=== PATIENT | female | born 1980 | race Hispanic/Latino ===

== ENCOUNTER 2023-11-21 02:28 | Inpatient (IN) | payer OTHER ==
--- OUTSIDE RECORDS SUMMARY | 2023-11-21 02:31 | XMS REPORT | Continuity of Care Document ---
Author Name Unknown Address [address] [facility] [address] [place] [address] [facility] thconnect Address [address] [facility] [address] [place] [address] Care Team Providers Care Director Smb Sales Name Role Phone SERGEI WALLIS Attending Clinician Unavailable TAE MARKS Attending Clinician Unavailable TRACEY HORNER Attending Clinician Unavailab airam BASSETT MD Attending Clinician Unavailab ANA LUISA Hirsch Attending Clinician Unavailable DANIELLA DUARTE Attending Clinician BRIGETTE Saab Attending Clinician Unavailable GC_ADCM_Moreno_D Attending Clinician Unavailable LAB90 Attending Clinician Unavailable GC_ADCM_Castillo_A Attending Clinician Unavailab le GC_ADCM_Moreno_D Admitting Clinician Unavailable GC_ADCM_Castillo_A Admitting Clinician Unavailab le Payers Payer Name Policy Type Policy Number Effective Date Expirati on Date Source AETNA [facility] [place] 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 ON 9 [id number] 2023 00:00:00 [employer]ET[employer] (O) [id number] 2023 00:00:00 AETNA [facility] [place] 2 [id number] 2023 00:00:00 [facility] [id number] Problems Condition Name Condition Details Condition Category Status Onset Date Resolution Date Last Treatment Date Treating Clinician Comments Source Migraine Migraine Problem Active 2024-0 3-17 00:00: 00 [facility] Body mass index 30+ - obesity Body Mass Index 30+ - Obesity Problem Active 9-15 00:00: 00 [facility] Obesity Obesity Problem Active 9-15 00:00: 00 [facility] Essential hypertensi on Essential Hypertensi on Problem Active 9- 00:00: 00 [facility] Chronic low back pain Chronic Low Back Pain Problem Active 9- 00:00: 00 [facility] History of diverticul itis History of Diverticul itis Problem Active 9-01 00:00: 00 [facility] Hyperlipid emia Hyperlipid emia Problem Active 8-04 00:00: 00 [facility] Anxiety Anxiety Problem Active 8-04 00:00: 00 [facility] Hypertensi ve disorder Hypertensi ve Disorder Problem Active 8-04 00:00: 00 [facility] Arthritis Arthritis Problem Active 8-04 00:00: 00 [facility] Neck pain Neck Pain Problem Active 8-04 00:00: 00 [facility] Chronic back pain Chronic Back Pain Problem Active 8-04 00:00: 00 [facility] Social History Social Habit Start Date Stop Date Quantity Comments Source Sexual orientation Nick Chavez - External Alcoholic beverage intake 2023-10-18 00:00:00 2023-10-18 00:00:00 Lifetime non-drinker (finding) Verónica Chavez - External Alcohol intake 2023-08-19 00:00:00 2023-08-19 00:00:00 Lifetime non-drinker (finding) Verónica Chavez - External History of Social function 2023-08-18 00:00:00 2023-08-18 00:00:00 Verónica Chavez - External Sex assigned at 1980 00:00:00 1980 00:00:00 Erica Chavez - External Smoking Status Start Date Stop Date Source Never smoked tobacco Verónica Chavez - External Medications Ordered Medication Name Filled Medication Name Start Date Stop Date Current Medication? Ordering Clinician Indication Dosage Frequency Signature (SIG) Comments Components Source Pregabalin 200 MG oral Capsule 2024-0 5-14 00:00: 00 Yes [id number] 200mg Take 1 capsule (200 mg total) by mouth every 12 hours No alcohol. No driving.. Verónica mcneil HYDROcodone -Acetaminop hen ([place]) 5-325 MG oral Tablet -14 00:00: 00 Yes [id number] 1{tbl} Q.25D Take 1 tablet by mouth every 6 hours as needed for pain (severe pain) No alcohol. No driving. No operating machinery. Verónica mcneil Ondansetron (ZOFRAN) 4 MG oral TABLET DISPERSIBLE 15 08:23: 49 Yes 4mg Q.[id number] 3D Take 1 tablet (4 mg total) by mouth every 8 hours as needed for nausea. Verónica mcneil Losartan Potassium-H CTZ 50-12.5 MG oral Tablet 15 00:00: 00 Yes [id number] 1{tbl} Take 1 tablet by mouth daily. Verónica mcneil Meclizine HCl 25 MG oral Tablet 15 00:00: 00 Yes [id number] 25mg Q.[id number] 3D Take 1 tablet (25 mg total) by mouth 3 times daily as needed for dizziness. Verónica mcneil Fluoxetine HCl 10 MG oral Capsule -12 00:00: 00 Yes Verónica mcneil hydrOXYzine HCl 25 MG oral Tablet -12 00:00: 00 08-18 00:00 :00 No 25mg Q4H Take 1 tablet (25 mg total) by mouth every 4 hours as needed. Verónica mcneil HYDROcodone -Acetaminop hen (NORCO) 5-325 MG oral Tablet 1-02 00:00: 00 Yes TAKE 1 TABLET EVERY 6-8 HOURS NEEDED FOR PAIN MAX 3/DAY SD 06/05/23 ED 07/05/23 Verónica mcneil betamethaso ne valerate 0.1 % topical cream APPLY A THIN LAYER TO THE AFFECTED AREA(S) BY TOPICAL ROUTE ONCE DAILY betamethaso ne valerate 0.1 % topical cream APPLY A THIN LAYER TO THE AFFECTED AREA(S) BY TOPICAL ROUTE ONCE DAILY 02-18 00:00: 00 No betamethas one valerate 0.1 % topical cream APPLY A THIN LAYER TO THE AFFECTED AREA(S) BY TOPICAL ROUTE ONCE DAILY [facility] Dicyclomine HCl 10 MG oral Capsule 01-18 00:00: 00 Yes Verónica mcneil Pregabalin 200 MG oral Capsule 01-18 00:00: 00 Yes Verónica mcneil Tizanidine HCl 4 MG oral Tablet 01-18 00:00: 00 Yes Verónica mcneil HYDROcodone -Acetaminop hen (NORCO) 5-325 MG oral Tablet 01-18 00:00: 00 08-18 00:00 :00 No Verónica mcneil Ferrous Sulfate (Iron High-Potenc y) 325 MG oral Tablet 01-18 00:00: 00 Yes Verónica mcneil Losartan Potassium-H CTZ 50-12.5 MG oral Tablet 01-18 00:00: 00 08-18 00:00 :00 No Verónica mcneil Diclofenac Sodium 1 % apply externally Gel 01-18 00:00: 00 Yes Verónica mcneil Loratadine (CLARITIN) 10 MG oral tablet 01-18 00:00: 00 Yes Verónica mcneil Ubrogepant (Ubrelvy) 50 MG oral Tablet 01-18 00:00: 00 Yes [facility]ica mcne[facility] Diclofenac Potassium 50 MG oral Tablet 01-18 00:00: 00 Yes 50mg Take 1 tablet (50 mg total) by mouth 2 times daily. [facility]cne[facility] Pantoprazol e Sodium 40 MG oral Tablet Delayed Response 01-18 00:00: 00 08-18 00:00 :00 No 40mg Take 1 tablet (40 mg total) by mouth daily. Verónica mcneil Cyclobenzap rine HCl 10 MG oral Tablet 01-18 00:00: 00 08-18 00:00 :00 No 10mg Q.5D Take 1 tablet (10 mg total) by mouth 2 times daily as needed. Verónica mcneil Butalbital- APAP-Caffei ne 325 mg-40 mg-50 mg tablet Take 1 tablet every 4 hours by oral route. Butalbital- APAP-Caffei ne 325 mg-40 mg-50 mg tablet Take 1 tablet every 4 hours by oral route. No 1 Q4H Butalbital -APAP-Caff eine 325 mg-40 mg-50 mg tablet Take 1 tablet every 4 hours by oral route. [facility] diclofenac sodium 50 mg tablet,josh yed release Take 1 tablet twice a day by oral route. diclofenac sodium 50 mg tablet,josh yed release Take 1 tablet twice a day by oral route. No 1 BID diclofenac sodium 50 mg tablet,del ayed release Take 1 tablet twice a day by oral route. [facility] Ferrous Sulfate FC 325 mg tablet Take 1 tablet every day by oral route. Ferrous Sulfate FC 325 mg tablet Take 1 tablet every day by oral route. No 1 Q1D Ferrous Sulfate FC 325 mg tablet Take 1 tablet every day by oral route. [facility] lidocaine 4 % topical cream lidocaine 4 % topical cream No lidocaine 4 % topical cream [facility] mupirocin 2 % topical ointment APPLY A SMALL AMOUNT TO THE AFFECTED AREA BY TOPICAL ROUTE 3 TIMES PER DAY mupirocin 2 % topical ointment APPLY A SMALL AMOUNT TO THE AFFECTED AREA BY TOPICAL ROUTE 3 TIMES PER DAY No mupirocin 2 % topical ointment APPLY A SMALL AMOUNT TO THE AFFECTED AREA BY TOPICAL ROUTE 3 TIMES PER DAY [facility] nortriptyli ne 10 mg capsule TAKE 1 CAPSULE BY MOUTH TWICE A DAY nortriptyli ne 10 mg capsule TAKE 1 CAPSULE BY MOUTH TWICE A DAY No nortriptyl ine 10 mg capsule TAKE 1 CAPSULE BY MOUTH TWICE A DAY [facility] pantoprazol e 40 mg tablet,josh yed release Take 1 tablet every day by oral route for 90 days. pantoprazol e 40 mg tablet,josh yed release Take 1 tablet every day by oral route for 90 days. No 1 Q1D pantoprazo le 40 mg tablet,del ayed release Take 1 tablet every day by oral route for 90 days. [facility] Vital Signs Vital Name Observation Time Observation Value Comments S ource Body height 2023-10-18 18:56:00 152.4 cm Zulema ey Seybold - External Body weight 2023-10-18 18:56:00 77.565 kg Zulema ey Seybold - External BMI 2023-10-18 18:56:00 33.40 kg/m2 Zulema ey Seybold - External Systolic blood pressure 2023-08-19 13:15:00 108 mm[Hg] Verónica Seybo ld - External Diastolic blood pressure 2023-08-19 13:15:00 88 mm[Hg] Verónica Seybo ld - External Heart rate 2023-08-19 13:15:00 80 /min Kelse y Seybold - External Body temperature 2023-08-19 13:15:00 36.89 Rika Verónica Seybold - External Respiratory rate 2023-08-19 13:15:00 16 /min Verónica Seybold - External Body height 2023-08-19 13:15:00 152.4 cm Zulema ey Seybold - External Body weight 2023-08-19 13:15:00 75.297 kg Zulema ey Seybold - External BMI 2023-08-19 13:15:00 32.42 kg/m2 Zulema ey Seybold - External Systolic blood pressure 2023-08-19 13:15:00 108 mm[Hg] Verónica Seybo ld - External Diastolic blood pressure 2023-08-19 13:15:00 88 mm[Hg] Verónica Seybo ld - External Heart rate 2023-08-19 13:15:00 80 /min Kelse y Seybold - External Body temperature 2023-08-19 13:15:00 36.89 Rika Verónica Seybold - External Respiratory rate 2023-08-19 13:15:00 16 /min Veórnica Seybold - External Body height 2023-08-19 13:15:00 152.4 cm Zulema ey Seybold - External Body weight 2023-08-19 13:15:00 75.297 kg Zulema ey Seybold - External BMI 2023-08-19 13:15:00 32.42 kg/m2 Zulema ey Seybold - External Height 2023-06-08 00:00:00 60 [in_i] [facility] BP Systolic 2023-06-08 00:00:00 116 mm[Hg] [facility] Body Weight 2023-06-08 00:00:00 2624 [oz_av] [facility] BMI (Body Mass Index) 2023-06-08 00:00:00 32 kg/m2 [facility] BP Diastolic 2023-06-08 00:00:00 66 mm[Hg] [facility] Procedures Procedure Date / Time Performed Performing Clinicia n Source Delivery 2008-06-06 00:00:00 [facility] En[facility] Start Date/Time End Date/Time Encounter Type Admission Type Attending [facility] Facility Care Department Encounter ID Source 2024-01-02 10:00:00 2024-01-02 10:00:00 Outpatient SERGEI WALLIS [id number] [facility] 2023-11-11 08:45:00 2023-11-11 08:45:00 Outpatient TAE MARKS [id number] [facility] 2023-11-10 15:00:00 2023-11-10 15:00:00 Outpatient TRACEY HORNER [id number] [facility] 2023-11-09 13:45:00 2023-11-09 13:45:00 Outpatient TAE MARKS [id number] [facility] 2023-11-09 09:00:00 2023-11-09 09:00:00 Outpatient TRACEY HORNER [id number] [facility] 2023-11-04 11:00:00 2023-11-04 11:00:00 Outpatient TAE MARKS [id number] [facility] 2023-11-01 00:00:00 2023-11-01 00:00:00 Outpatient MD VERÓNICA MCQUEEN [id number] [facility] 2023-10-25 09:30:00 2023-10-25 09:30:00 Outpatient TAE MARKS [id number] [facility] 2023-10-18 13:45:00 2023-10-18 13:45:00 Outpatient ANA LUISA NAJERA [facility] STRONG [id number] [facility] 2023-09-30 08:15:00 2023-09-30 08:15:00 Outpatient DANIELLA DUARTE [facility] [id number] [facility] 2023-09-26 10:15:00 2023-09-26 10:15:00 Outpatient BRIGETTE LIZ [facility] [id number] [facility] 2023-09-15 16:00:00 2023-09-15 16:00:00 Outpatient DANIELLA DUARTE [facility] STRONG [id number] [facility] 2023-09-06 00:00:00 2023-09-06 00:00:00 Outpatient GC_ADCM_Mor eno_D PRIV PRIV [id number] [facility] 2023-09-05 09:30:00 2023-09-05 09:30:00 Outpatient DANIELLA DUARTE [facility] STRONG [id number] [facility] 2023-08-19 09:15:00 2023-08-19 09:15:00 Outpatient CYNDY [facility]ICA STRONG [id number] [facility] 2023-08-19 08:30:00 2023-08-19 08:30:00 Outpatient DANIELLA DUARTE [facility] STRONG [id number] [facility] 2023-08-19 08:30:00 2023-08-19 08:30:00 Outpatient DANIELLA DUARTE [facility] STRONG [id number] [facility] 2023-08-16 13:02:51 2023-08-16 13:02:51 Outpatient SFA [facility] [id number] David Maldonado Jonah 2023-08-08 00:00:00 2023-08-08 00:00:00 Outpatient PRIV PRIV [id number] [facility] 2023-06-09 00:00:00 2023-06-09 00:00:00 Outpatient GC_ADCM_Mor eno_D PRIV PRIV [id number] [facility] 2023-06-08 00:00:00 2023-06-08 00:00:00 Outpatient GC_ADCM_Cas tillo_A PRIV PRIV [id number] [facility] 2023-06-08 00:00:00 2023-06-08 00:00:00 Saad Casanova MD: [address], [facility] [place] [address] , Ph. [facility] - GC_ADCM_[place] Office* [id number] [facility] 2023-04-04 00:00:00 2023-04-04 00:00:00 Outpatient GC_ADCM_Cas tillo_A PRIV PRIV [id number] [facility] 2023-04-04 00:00:00 2023-04-04 00:00:00 Outpatient GC_ADCM_Cas tillo_A PRIV PRIV [id number] [facility] 2023-03-16 00:00:00 2023-03-16 00:00:00 Outpatient GC_ADCM_Cas tillo_A PRIV PRIV [id number] [facility] 2023-03-16 00:00:00 2023-03-16 00:00:00 Outpatient GC_ADCM_Cas tillo_A PRIV PRIV [id number] [facility] 2023-03-02 00:00:00 2023-03-02 00:00:00 Outpatient GC_ADCM_Cas tillo_A PRIV PRIV [id number] [facility] 2023-02-18 00:00:00 2023-02-18 00:00:00 Outpatient GC_ADCM_Cas tillo_A PRIV PRIV [id number] [facility] 2023-02-15 00:00:00 2023-02-15 00:00:00 Outpatient GC_ADCM_Cas tillo_A PRIV PRIV [id number] [facility] 2023-02-04 00:00:00 2023-02-04 00:00:00 Outpatient GC_ADCM_Cas tillo_A PRIV PRIV [id number] [facility] 2023-02-03 00:00:00 2023-02-03 00:00:00 Outpatient GC_ADCM_Cas tillo_A PRIV PRIV [id number] [facility] 2023-01-09 00:00:00 2023-01-09 00:00:00 Outpatient GC_ADCM_Cas tillo_A [facility] [id number] [facility] 2023-01-07 00:00:00 2023-01-07 00:00:00 Outpatient GC_ADCM_Cas tillo_A [facility] [id number] [facility] 2023-01-06 00:00:00 2023-01-06 00:00:00 Outpatient GC_ADCM_Cas tillo_A [facility] [id number] [facility] Notes Date/Time Note Provider Source 2023-10-18 13:57:45 [id number]:57:45F ormatting of this note is different from the original.Chief ComplaintPatient presents withBack PainLower back [id number] ItmeQE8510-26-76R75:51:33Nurse NoteTXT1.2.840.955990.1.13.131.2.7.2. [id number] for patient takj11056-1Pfqxf NoteLNNARRATIVEFormatted C-CDA narrative textAscension [facility].[id number]:51:331.2.840.323336.1.7 2.3.15|1.2.840.890030.1.13.131.2.7.2. [id number] [facility] 2023-08-19 08:21:24 [id number]:21:24F ormatting of this note is different from the original.Chief ComplaintPatient presents withEstkittitas valley healthcaregely CorderoOly had a PCP in [place] and has just moved to the area.ReferralReferral for pain management. She was seeing Pain Management and has records.DizzinessDizziness for 3 days. No nausea or vomiting. [place] [id number] BiuyGV1308-23-02Y72:24:27Nurse NoteTXT1.2.840.906413.1.13.131.2.7.2. 367003|[id number] for patient xvig10998-8Rzlse NoteLNNARRATIVEFormatted C-CDA narrative [facility].[id number]:24:271.2.840.926374.1.7 2.3.15|1.2.840.783492.1.13.131.2.7.2. [id number] [facility]"
[2023-11-21] MEDS ORDERED: KETOROLAC 30 MG/ML INJ ONE (03:28)
[2023-11-21] MEDS ORDERED: ONDANSETRON 4 MG/2 ML VIAL ONE ×2 (03:28→05:19)
[2023-11-21] MEDS ORDERED: FAMOTIDINE 20 MG/2 ML VIAL IV ONE (03:29)
[2023-11-21] MEDS ORDERED: MORPHINE 4 MG/ML SYR ONE ×2 (03:29→05:19)
[2023-11-21] MEDS ORDERED: NA CHLORIDE 0.9% 1,000 ML ONE (03:29)
[2023-11-21 03:58] LABS: Absolute Eosinophils 0.1 K/uL (0-0.5); Absolute Lymphocytes (CBC) 1.1 K/uL (0.7-4.9); Absolute Monocytes 0.7 K/uL (0.1-1.3); Absolute Neutrophil 7.2 K/uL (1.8-8.0); Basophils % 0.3 % (0-1.3); Eosinophils % 1.4 % (0-4.4); Hematocrit 36.9 % (36.0-45.0); Lymphocytes % 11.9 % (15.3-44.8); MCH 24.9 pg (27.0-35.0); MCHC 32.6 g/dL (32.0-36.0); MCV 76.5 fL (80-100); MPV 8.2 fL (7.6-11.3); Neutrophils % 78.4 % (41.7-73.7); Nucleated Red Blood Cells % 0.1 % (0-0); Platelets 273 thou/uL (152-406); RBC Red Blood Cell Count 4.82 M/uL (3.86-4.86); Red Cell Distribution Width 15.3 % (12.1-15.2)
[2023-11-21 04:18] LABS: Specific Gravity > 1.030 (1.005-1.030)
[2023-11-21 04:19] LABS: Specific Gravity > 1.030 (1.005-1.030); Sqamous Epithelial <5 /HPF (None Seen); Urine Bacteria None Seen /HPF (<20); Urine Bilirubin NEGATIVE (Negative); Urine Blood 3+ (OVER) (Negative); Urine Clarity Clear (Clear); Urine Color Light-Yellow (Yellow); Urine Culture Reflex Order NOT NEEDED; Urine Glucose NEGATIVE (Negative); Urine Ketones NEGATIVE (Negative); Urine Microscopic Reflex YN ORDER UMIC; Urine Mucus Slight /HPF (None Seen); Urine Nitrite NEGATIVE (Negative); Urine Protein TRACE (Negative); Urine RBC 21-50 /HPF (None Seen); Urine Urobilinogen Normal (Normal); Urine WBC <5 /HPF (<5)
[2023-11-21 04:26] LABS: Albumin 3.3 g/dL (3.4-5.0); Albumin/Globulin Ratio 0.9 (1.1-1.8); Anion Gap 7.5 mEq/L (5.0-15.0); Bilirubin Total 0.2 mg/dL (0.2-1.0); Globulin 3.8 g/dL (2.3-3.5); Potassium 3.5 mEq/L (3.5-5.1); Protein, Total 7.1 g/dL (6.4-8.2)
[2023-11-21] MEDS ORDERED: CEFTRIAXONE 1000 MG/VIAL ONE ×2 (05:46→06:01)
[2023-11-21] MEDS ORDERED: CIPROFLOXACIN 400mg IV 400 MG/200 ML BAG IV ONE (05:47)
[2023-11-21] MEDS ORDERED: METRONIDAZOLE 500mg IVPB 500 MG/100 ML BAG IV ONE (05:47)
--- NOTE | 2023-11-21 05:49 | EDPHYS ---
Physician Documentation [facility] Name: Va Huntley Age: 43 yrs Sex: Female : 1980 Arrival Date: 11/21/2023 Time: 02:28 Bed 6 Private MD: ED Physician Sawyer Coronado HPI: 11/20 02:57 This 43 yrs old Female presents to ER via Unassigned with complaints of dagoberto Abdominal Pain. 02:57 The patient presents with abdominal pain in the upper abdomen, in the lower abdomen, dagoberto abdominal distention in the upper abdomen, in the lower abdomen. Onset: The symptoms/episode began/occurred 9 hour(s) ago. The symptoms radiate to left back. Associated signs and symptoms: none. The symptoms are described as constant, crampy. Modifying factors: The symptoms are alleviated by remaining still, the symptoms are aggravated by movement, pressure. Severity of pain: At its worst the pain was moderate in the emergency department the pain is unchanged. The patient has experienced similar episodes in the past, a few times. 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 - Infectious Disease History:: Denies. - Family history:: not pertinent. - Social history:: Patient/guardian denies using Smoking status: Patient denies any tobacco usage or history of. ROS: 02:57 Constitutional: Negative for fever, chills, and weight loss, Eyes: Negative for injury, dagoberot pain, redness, and discharge, ENT: Negative for injury, pain, and discharge, Neck: Negative for injury, pain, and swelling, Cardiovascular: Negative for chest pain, palpitations, and edema, Respiratory: Negative for shortness of breath, cough, wheezing, and pleuritic chest pain, Back: Negative for injury and pain, : Negative for injury, bleeding, discharge, and swelling, MS/Extremity: Negative for injury and deformity, Skin: Negative for injury, rash, and discoloration, Neuro: Negative for headache, weakness, numbness, tingling, and seizure, 02:57 Abdomen/GI: Positive for abdominal pain, abdominal cramps, abdominal distension, of the left upper quadrant and left lower quadrant, Exam: 02:57 Constitutional: This is a well developed, well nourished patient who is awake, alert, dagoberto and in no acute distress. Head/Face: Normocephalic, atraumatic. Eyes: Pupils equal round and reactive to light, extra-ocular motions intact. Lids and lashes normal. Conjunctiva and sclera are non-icteric and not injected. Cornea within normal limits. Periorbital areas with no swelling, redness, or edema. ENT: Nares patent. No nasal discharge, no septal abnormalities noted. Tympanic membranes are normal and external auditory canals are clear. Oropharynx with no redness, swelling, or masses, exudates, or evidence of obstruction, uvula midline. Mucous membranes moist. Neck: Trachea midline, no thyromegaly or masses palpated, and no cervical lymphadenopathy. Supple, full range of motion without nuchal rigidity, or vertebral point tenderness. No Meningismus. Chest/axilla: Normal chest wall appearance and motion. Nontender with no deformity. No lesions are appreciated. Cardiovascular: Regular rate and rhythm with a normal S1 and S2. No gallops, murmurs, or rubs. Normal PMI, no JVD. No pulse deficits. Respiratory: Lungs have equal breath sounds bilaterally, clear to auscultation and percussion. No rales, rhonchi or wheezes noted. No increased work of breathing, no retractions or nasal flaring. Back: No spinal tenderness. No costovertebral tenderness. Full range of motion. Skin: Warm, dry with normal turgor. Normal color with no rashes, no lesions, and no evidence of cellulitis. MS/ Extremity: Pulses equal, no cyanosis. Neurovascular intact. Full, normal range of motion. Neuro: Awake and alert, GCS 15, oriented to person, place, time, and situation. Cranial nerves II-XII grossly intact. Motor strength 5/5 in all extremities. Sensory grossly intact. Cerebellar exam normal. Normal gait. Psych: Awake, alert, with orientation to person, place and time. Behavior, mood, and affect are within normal limits. 02:57 Abdomen/GI: Inspection: distension, that is mild, Bowel sounds: normal, Palpation: moderate abdominal tenderness, in the left upper quadrant and left lower quadrant, Liver: no appreciated palpable abnormalities, Hernia: not appreciated, 02:57 Back: ROM is normal, normal spinal alignment noted, CVA tenderness, that is mild, is noted on the left, vertebral tenderness, is not appreciated, muscle spasm, is not present, Vital Signs: 02:57 BP 121 / 81; Pulse 80; Resp 15; Temp 98.2; Pulse Ox 99% ; Weight 77.11 kg; Height 5 ft. ty 0 in. ; Pain 10/10; 04:58 Pulse 73; Pulse Ox 99% on R/A; Pain 8/10; tm6 09:19 BP 112 / 72; Pulse 71; Resp 18; Pulse Ox 97% on R/A; ld1 02:57 Body Mass Index 33.20 (77.11 kg, 152.40 cm) ty 02:57 Pain Scale: Adult ty 04:58 Pain Scale: Adult tm6 MDM: 02:38 Patient medically screened. [facility] 03:01 Differential diagnosis: bowel obstruction, Cholelithiasis, diverticulitis, gastritis, dagoberto Hepatitis, Menorrhagia, Mesenteric ischemia or infarction, non-specific abd pain, pancreatitis, Peptic Ulcer Disease, Perf. Duodenal Ulcer, Pyelonephritis, Ureterolithiasis, urinary tract infection. Data reviewed: vital signs, nurses notes, lab test result(s), radiologic studies, CT scan. Consideration of Admission/Observation Escalation of care including admission/observation considered. I considered the following discharge prescriptions or medication management in the emergency department Medications were administered in the Emergency Department. See MAR. Independent interpretation of the following test(s) in the Emergency Department CT Scan: My interpretation is ct abd pelvis. Historians other than the Patient: Spouse/Significant Other: sign other well informed. 11/20 02:55 Order name: CBC with Diff; Complete Time: 04:00 [facility] 11/20 02:55 Order name: CMP; Complete Time: 05:27 [facility] 11/20 02:55 Order name: Lipase; Complete Time: 05:27 [facility] 11/20 02:55 Order name: Test, Urine; Complete Time: 05:27 [facility] 11/20 02:55 Order name: Urinalysis w/ reflexes; Complete Time: 05:27 [facility] 11/20 09:14 Order name: Thyroid Stimulating Hormone [facility] 11/20 09:14 Order name: Basic Metabolic Panel [facility] 11/20 09:14 Order name: Basic Metabolic Panel [facility] 11/20 09:14 Order name: Basic Metabolic Panel [facility] 11/20 09:14 Order name: Basic Metabolic Panel [facility] 11/20 09:14 Order name: Basic Metabolic Panel [facility] 11/20 09:14 Order name: Basic Metabolic Panel [facility] 11/20 09:14 Order name: CBC with Automated Diff [facility] 11/20 09:14 Order name: CBC with Automated Diff [facility] 11/20 09:14 Order name: CBC with Automated Diff [facility] 11/20 09:14 Order name: CBC with Automated Diff [facility] 11/20 09:14 Order name: CBC with Automated Diff [facility] 11/20 09:14 Order name: CBC with Automated Diff [facility] 11/20 09:14 Order name: Lipid Profile [facility] 11/20 09:14 Order name: Lipid Profile [facility] 11/20 09:14 Order name: Magnesium [facility] 11/20 09:14 Order name: Magnesium ED[facility] 11/20 09:14 Order name: Magnesium EDMS 11/20 09:14 Order name: Magnesium ED[facility] 11/20 09:14 Order name: Magnesium EDMS 11/20 09:14 Order name: Magnesium EDMS 11/20 09:14 Order name: Phosphorus ED[facility] 11/20 09:14 Order name: Phosphorus EDMS 11/20 09:14 Order name: Phosphorus EDMS 11/20 09:14 Order name: Phosphorus EDMS 11/20 09:14 Order name: Phosphorus EDMS 11/20 09:14 Order name: Phosphorus EDMS 11/20 09:18 Order name: T4 Free EDMS 11/20 09:18 Order name: Thyroid Stimulating Hormone EDMS 11/20 02:55 Order name: CT Abd/Pelvis - IV Contrast Only [facility] 11/20 02:55 Order name: IV Saline Lock; Complete Time: 03:17 [facility] 11/20 02:55 Order name: Labs collected and sent; Complete Time: 03:17 [facility] Administered Medications: 03:41 Drug: NS 0.9% IV 1000 ml IV at 1 bolus Per protocol; 1000 mL bolus Route: IV; Rate: 1 tm6 bolus; Site: right antecubital; 03:41 Drug: Famotidine IVP 20 mg IVP once; dilute with 10 mL 0.9% NaCl; give over 2 minutes tm6 Route: IVP; Site: right antecubital; 03:41 Drug: TORadol - Ketorolac IVP 15 mg IVP once Route: IVP; Site: right antecubital; tm6 03:41 Drug: Ondansetron IVP 4 mg IVP once; over 2 minutes Route: IVP; Site: right antecubital;tm6 03:41 Drug: morphine IVP or IV 4 mg IVP once over 4 mins Route: IVP; Infused Over: 4 mins; tm6 Site: right antecubital; 05:40 Drug: morphine IVP or IV 4 mg IVP once over 4 mins Route: IVP; Infused Over: 4 mins; tm6 Site: right antecubital; 05:40 Drug: Ondansetron IVP 4 mg IVP once; over 2 minutes Route: IVP; Site: right antecubital;tm6 05:41 CANCELLED (Duplicate Order): morphineor iv 4 mg IVP once over 4 mins tm6 05:41 CANCELLED (Duplicate Order): ondansetron 4 mg IVP once; over 2 minutes tm6 06:01 Drug: Rocephin IV 1 grams IV at per protocol once; Given slow IV push per pharmacy tm6 instructions Route: IV; Rate: per protocol; Site: right antecubital; 06:08 Drug: metroNIDAZOLE IVPB 500 mg 100 ml IVPB at 200 ml/hr once over 30 mins Volume: 100 tm6 ml; Route: IVPB; Rate: 200 ml/hr; Infused Over: 30 mins; Site: right antecubital; 06:08 Drug: Rocephin IV 1 grams IV at per protocol once; Given slow IV push per pharmacy tm6 instructions Route: IV; Rate: per protocol; Site: right antecubital; 07:14 Drug: Ciprofloxacin IVPB 400 mg 200 ml IVPB once over 60 mins Volume: 200 ml; Route: ld1 IVPB; Infused Over: 60 mins; Site: right antecubital; Disposition Summary: 11/21/23 05:49 Hospitalization Ordered Notes: Hospitalization Status: Inpatient Admission dagoberto Provider: Joslyn Ivory cha Location: Telemetry/MedSurg (Inpatient) dagoberto Condition: Stable dagoberto Problem: new dagoberto Symptoms: have improved dagoberto Bed/Room Type: Standard [facility] Room Assignment: 407(11/21/23 09:22) bd Diagnosis - Abdominal tenderness dagoberto - Diverticulitis of large intestine without perforation or abscess without bleeding - dagoberto DECENDING COLON Forms: - Medication Reconciliation Form dagoberto - SBAR form dagoberto - Leadership Thank You Letter dagoberto Signatures: Dispatcher [employer] EDMS MengEsther umana Sawyer Birmingham MD MD cha Sims, Lauren, RN RN ld1 Marcelino Altman RN RN tm6 Elsy escobar, RN RN pc2 Corrections: (The following items were deleted from the chart) 02:55 02:55 CBC+H.LAB.BRZ ordered. EDMS EDMS 02:55 02:55 COMPREHENSIVE METABOLIC PANEL+C.LAB.BRZ ordered. EDMS EDMS 02:55 02:55 LIPASE+C.LAB.BRZ ordered. EDMS EDMS 02:55 02:55 Test, Urine+UC.LAB.BRZ ordered. EDMS EDMS 02:55 02:55 Urinalysis+U.LAB.BRZ ordered. EDMS EDMS 02:55 02:55 Abdomen Pelvis W Con+CT.RAD.BRZ ordered. EDMS EDMS 03:28 03:02 Social history: Patient/guardian denies using alcohol, street drugs, IV drugs, pc2pc2 05:41 05:30 morphine IVP or IV 4 mg IVP once over 4 mins ordered. [facility] tm6 05:41 05:30 Ondansetron IVP 4 mg IVP once; over 2 minutes ordered. [facility] 09:16 09:14 T4 Free ordered. EDVT EDMS 09:16 09:14 Thyroid Stimulating Hormone ordered. EDMS EDMS 09:22 05:49 [facility]
--- NOTE | 2023-11-21 05:49 | ER ---
Nurse's Notes [facility] Name: Va Huntley Age: 43 yrs Sex: Female : 1980 Arrival Date: 11/21/2023 Time: 02:28 Bed 6 Private MD: Diagnosis: Abdominal tenderness;Diverticulitis of large intestine without perforation or abscess without bleeding-DECENDING COLON Presentation: 11/20 03:01 Chief complaint: Patient states: left sided abdominal pain radiating to back that pc2 starting 6pm lastnight. Denies N/V or urinary symptoms. Coronavirus screen: Client denies travel out of the [place] in the last 14 days. At this time, the client does not indicate any symptoms associated with coronavirus-19. Ebola Screen: No symptoms or risks identified at this time. Initial Sepsis Screen: Does the patient meet any 2 criteria? No. Patient's initial sepsis screen is negative. Initial Sepsis Screen: Does the patient meet any 2 criteria? No. Patient's initial sepsis screen is negative. Does the patient have a suspected source of infection? No. Patient's initial sepsis screen is negative. Risk Assessment: Do you want to hurt yourself or someone else? Patient reports no desire to harm self or others. 03:01 Method Of Arrival: Ambulatory pc2 03:01 Acuity: TEDDY 3 pc2 03:01 Onset of symptoms was November 20, 2023 at 18:00. pc2 Triage Assessment: 03:04 General: Appears in no apparent distress. uncomfortable, well developed, Behavior is pc2 calm, cooperative, appropriate for age. Pain: Complains of pain in left abdomen Pain radiates to back Pain currently is 10 out of 10 on a pain scale. Noted to be grimacing. EENT: No signs and/or symptoms were reported regarding the EENT system. Neuro: Level of Consciousness is awake, alert, obeys commands, Oriented to person, place, time, situation, Appropriate for age Gait is steady, Speech is normal. Cardiovascular: Patient's skin is warm and dry. Respiratory: Airway is patent Respiratory effort is even, unlabored, Respiratory pattern is regular, symmetrical. GI: Abdomen is non-distended, Bowel sounds present X 4 quads. Abd is soft and non tender X 4 quads. Reports lower abdominal pain, Pain is 10 out of 10 on a pain scale. reports last menstrual 11/18/23. : No signs and/or symptoms were reported regarding the genitourinary system. Denies burning with urination, discharge, inability to void, incontinence, urinary frequency, urgency. Derm: No signs and/or symptoms reported regarding the dermatologic system. Musculoskeletal: No signs and/or symptoms reported regarding the musculoskeletal system. 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 - Infectious Disease History:: Denies. - Family history:: not pertinent. - Social history:: Patient/guardian denies using Smoking status: Patient denies any tobacco usage or history of. Screenin:26 [facility] ED Fall Risk Assessment (Adult) History of falling in the last 3 months, pc2 including since admission No falls in past 3 months (0 pts). Abuse screen: Denies threats or abuse. Denies injuries from another. Nutritional screening: No deficits noted. Tuberculosis screening: No symptoms or risk factors identified. Assessment: 03:12 Reassessment: see triage assessment. pc2 04:58 Reassessment: Patient and/or family updated on plan of care and expected duration. Pain tm6 level reassessed. Patient is alert, oriented x 3, equal unlabored respirations, skin warm/dry/pink. Vital Signs: 02:57 BP 121 / 81; Pulse 80; Resp 15; Temp 98.2; Pulse Ox 99% ; Weight 77.11 kg; Height 5 ft. ty 0 in. ; Pain 10/10; 04:58 Pulse 73; Pulse Ox 99% on R/A; Pain 8/10; tm6 09:19 BP 112 / 72; Pulse 71; Resp 18; Pulse Ox 97% on R/A; ld1 02:57 Body Mass Index 33.20 (77.11 kg, 152.40 cm) ty 02:57 Pain Scale: Adult ty 04:58 Pain Scale: Adult tm6 ED Course: 02:31 Patient arrived in ED. jj6 02:37 Sawyer Coronado MD is Attending Physician. dagoberto 02:58 Elsy escobar, RN is Primary Nurse. pc2 03:01 Arm band placed on right wrist. pc2 03:05 Patient has correct armband on for positive identification. Bed in low position. Call pc2 light in reach. Side rails up X2. Adult w/ patient. 03:05 Provided Education on: POC and timeframe. pc2 03:17 Triage completed. pc2 03:17 Initial lab(s) drawn, by me, sent to lab. Inserted saline lock: 22 gauge in right ty antecubital area, using aseptic technique. Blood collected. 03:17 CBC with Diff Sent. ty 03:17 CMP Sent. ty 03:17 Lipase Sent. ty 03:26 Test, Urine Sent. tm6 03:26 Urinalysis w/ reflexes Sent. tm6 04:44 CT Abd/Pelvis - IV Contrast Only In Process Unspecified. EDMS 05:47 Joslyn Ivory MD is Hospitalizing Provider. dagoberto 09:49 Initial lab(s) drawn, by me, sent to lab. sm8 Administered Medications: 03:41 Drug: NS 0.9% IV 1000 ml IV at 1 bolus Per protocol; 1000 mL bolus Route: IV; Rate: 1 tm6 bolus; Site: right antecubital; 03:41 Drug: Famotidine IVP 20 mg IVP once; dilute with 10 mL 0.9% NaCl; give over 2 minutes tm6 Route: IVP; Site: right antecubital; 03:41 Drug: TORadol - Ketorolac IVP 15 mg IVP once Route: IVP; Site: right antecubital; tm6 03:41 Drug: Ondansetron IVP 4 mg IVP once; over 2 minutes Route: IVP; Site: right antecubital;tm6 03:41 Drug: morphine IVP or IV 4 mg IVP once over 4 mins Route: IVP; Infused Over: 4 mins; tm6 Site: right antecubital; 05:40 Drug: morphine IVP or IV 4 mg IVP once over 4 mins Route: IVP; Infused Over: 4 mins; tm6 Site: right antecubital; 05:40 Drug: Ondansetron IVP 4 mg IVP once; over 2 minutes Route: IVP; Site: right antecubital;tm6 05:41 CANCELLED (Duplicate Order): morphineor iv 4 mg IVP once over 4 mins tm6 05:41 CANCELLED (Duplicate Order): ondansetron 4 mg IVP once; over 2 minutes tm6 06:01 Drug: Rocephin IV 1 grams IV at per protocol once; Given slow IV push per pharmacy tm6 instructions Route: IV; Rate: per protocol; Site: right antecubital; 06:08 Drug: metroNIDAZOLE IVPB 500 mg 100 ml IVPB at 200 ml/hr once over 30 mins Volume: 100 tm6 ml; Route: IVPB; Rate: 200 ml/hr; Infused Over: 30 mins; Site: right antecubital; 06:08 Drug: Rocephin IV 1 grams IV at per protocol once; Given slow IV push per pharmacy tm6 instructions Route: IV; Rate: per protocol; Site: right antecubital; 07:14 Drug: Ciprofloxacin IVPB 400 mg 200 ml IVPB once over 60 mins Volume: 200 ml; Route: ld1 IVPB; Infused Over: 60 mins; Site: right antecubital; Medication: 03:27 VIS not applicable for this client. pc2 Outcome: 05:49 Decision to Hospitalize by Provider. [facility] 10:41 Patient left the ED. iw Signatures: Dispatcher [employer] EDSawyer Grimm MD MD cha Williams, Irene, RN RN iw Radha Caceres RN RN ld1 Oneyda Eldridge jj6 Kathleen Long sm8 Marcelino Altman RN RN tm6 Celso Jay Pam, RN RN pc2 Corrections: (The following items were deleted from the chart) 03:28 03:02 Social history: Patient/guardian denies using alcohol, street drugs, IV drugs, pc2pc2 03:30 03:04 GI: Abdomen is non-distended, Abd is soft and non tender X 4 quads. Reports lower pc2 abdominal pain, Pain is 10 out of 10 on a pain scale. reports last menstrual 11/18/23 pc2
--- NOTE | 2023-11-21 06:31 | P.HP ---
Certification for Inpatient Patient admitted to: Inpatient With expected LOS: >2 Midnights Practitioner: I am a practitioner with admitting privileges, knowledge of patient current condition, hospital course, and medical plan of care. Services: Services provided to patient in accordance with Admission requirements found in Title 42 Section 412.3 of the Code of Federal Regulations Patient History Date of Service: 11/21/23 Reason for admission: Acute Diverticulitis History of Present Illness: Va Arnett is a 43-year-old female with past medical history of depression who presents to the ED with chief complaint of LLQ abdominal pain that began 9 hours prior to arrival. She reports having a history of diverticulitis with the last episode approximately 1 year ago. She denies nausea, vomiting, diarrhea. She is hemodynamically stable and lab values showing left shift with neutrophils at 78.4 and UA showing microcytic blood present. CT abd/pelvis demonstrates acute uncomplicated diverticulitis of the distal descending colon, hepatomegaly and hepatic steatosis. Va will be admittted to hospitalist service for further evaluation and treatment. Dr. Duarte consulted Allergies No Known Allergies Allergy (Unverified 11/21/23 08:57) Home Medications: Losartan Potassium 12.5 mg PO DAILY 11/21/23 - Past Medical/Surgical History -: Diverticulitis -: Depression Past Surgical History: Reviewed- Non-Contributory - Family History Father -: Heart disease, Hypertension, Diabetes Mother -: Heart disease, Hypertension, Diabetes - Social History Smoking Status: Never smoker Alcohol use: No CD- Drugs: No Review of Systems Gastrointestinal: Abdominal Pain (LLQ) Physical Examination - Physical Exam General: Alert, In no apparent distress, Oriented x3 HEENT: Atraumatic, Normocephalic, PERRLA Neck: Supple, 2+ carotid pulse no bruit Respiratory: Clear to auscultation bilaterally, Normal air movement Cardiovascular: Normal pulses, Regular rate/rhythm Capillary refill: <2 Seconds Gastrointestinal: Normal bowel sounds, Soft and benign, Distended (I will be), Tenderness (LLQ) Musculoskeletal: No swelling Integumentary: No rashes Neurological: Normal speech, Normal tone - Studies Laboratory Data (last 24 hrs) 11/21/23 11/21/23 03:13 03:13 WBC 9.20 Hgb 12.0 Hct 36.9 Plt Count 273 Sodium 140 Potassium 3.5 BUN 12 Creatinine 0.68 Glucose 100 Total Bilirubin 0.2 AST 29 ALT 58 H Alkaline Phosphatase 93 Lipase 57 Assessment and Plan - Plan Assessment and plan Acute diverticulitis of the distal descending colon Febrile Left lower quadrant pain -CT abd/pelvis demonstrates acute uncomplicated diverticulitis of the distal descending colon, hepatomegaly and hepatic steatosis. -N.p.o., Ice chips, advance to CLD tonight -Pain control -Rocephin, Cipro, Flagyl given in the ED -Ciprofloxacin and Flagyl on the floor -Gentle IV fluids -Tylenol for fever -Dr. Duarte consulted History of Depression -continue home medications when available Hepatomegaly Hepatic Steatosis -Lipid panel pending -outpatient follow up DVT ppx SCD Full Code LOS 2 days Discharge Plan: Home Plan to discharge in: 48 Hours - Advance Directives Does patient have a Living Will: No Does patient have a Durable POA for Healthcare: No
[2023-11-21] MEDS ORDERED: HYDROMORPHONE HCL 1 MG/ML INJ IV PRN (09:08)
--- NOTE | 2023-11-21 11:22 | RAD REPORT ---
EXAM DESCRIPTION: Abdomen Pelvis W Contrast CLINICAL HISTORY: ABD PAIN COMPARISON: None Available. TECHNIQUE: CT of the abdomen and pelvis performed following IV administration of iodinated contras t. This exam was performed according to our departmental dose-optimization program, which includes au tomated exposure control, adjustment of the mA and/or kV according to patient size and/or use of iter ative reconstruction technique. FINDINGS: Lung Bases: The visualized lung bases are clear. Bones: Mild endplate spondylosis. Abdomen: Liver: Hepatomegaly with diffusely decreased density. Gallbladder: No calcified gallstones. Spleen, Pancreas, and Adrenal Glands: The spleen, pancreas, and adrenal glands are unremarkable. Kidneys: No hydronephrosis or obstructing calculus. Vasculature: The aorta and IVC have normal caliber and position. The portal vein is patent. The pro ximal visceral and renal arteries are patent. Stomach: The stomach and duodenum have normal course. Other: No free intraperitoneal air. No free fluid or lymphadenopathy. Pelvis: Bladder: Urinary bladder is unremarkable. Bowel: No dilated loops of large or small bowel. Short segment wall thickening of the distal descen ding colon with adjacent inflammatory change centered on an inflamed diverticula. Large amount stool. No well-circumscribed paracolic fluid collection. Appendix: Normal appendix. Pelvis: Uterus is not enlarged. IMPRESSION: 1. Findings compatible with acute uncomplicated diverticulitis of the distal descendin g colon. 2. Hepatomegaly and hepatic steatosis. Electronically signed by: Stanley Siu DO 11/21/2023 05:41 AM CDT 4ZDM Due to temporary technical issues with the PACS/Fluency reporting system, reports are being signed by the in house radiologist without review as a courtesy to ensure prompt reporting. The interpreting r adiologist is fully responsible for the content of the report.
[2023-11-21] MEDS: NA CHLORIDE 0.9% 1,000 ML IV SCH (11:24)
[2023-11-21 11:25] VITALS: BMI 34.3
[2023-11-21] MEDS: METRONIDAZOLE 500mg IVPB 500 MG/100 ML BAG IV SCH (13:20)
[2023-11-21] MEDS: ACETAMINOPHEN 500 MG TAB PO PRN (15:18)
[2023-11-21] MEDS: HYDROCODONE/CHLORPHEN 5 ML/OSYR PO PRN (15:19)
[2023-11-21] MEDS ORDERED: ACETAMINOPHEN 500 MG TAB PO PRN (15:35)
[2023-11-21] MEDS: CIPROFLOXACIN 400mg IV 400 MG/200 ML BAG IV SCH (17:37)
[2023-11-21] MEDS: GUAIFENESIN 600 MG SA TAB PO SCH (20:18)
[2023-11-21] MEDS: GUAIFENESIN/CODEINE 5ML UCUP PO PRN (20:18)
[2023-11-22 06:26] LABS: Absolute Lymphocytes (CBC) 0.9 K/uL (0.7-4.9); Absolute Monocytes 0.8 K/uL (0.1-1.3); Absolute Neutrophil 4.4 K/uL (1.8-8.0); Basophils % 0.3 % (0-1.3); Eosinophils % 0.4 % (0-4.4); Hematocrit 32.9 % (36.0-45.0); Hemoglobin 10.9 g/dL (12.0-15.0); Lymphocytes % 14.2 % (15.3-44.8); MCH 25.3 pg (27.0-35.0); MCHC 33.1 g/dL (32.0-36.0); MCV 76.2 fL (80-100); Monocytes % 12.5 % (3.3-12.3); Neutrophils % 72.6 % (41.7-73.7); Nucleated Red Blood Cells % 0.1 % (0-0); Platelets 228 thou/uL (152-406); RBC Red Blood Cell Count 4.32 M/uL (3.86-4.86); Red Cell Distribution Width 15.1 % (12.1-15.2)
[2023-11-22 06:52] LABS: Anion Gap 7.7 mEq/L (5.0-15.0); Magnesium 1.9 mg/dL (1.6-2.4); Phosphorus 1.9 mg/dL (2.5-4.9); Potassium 3.7 mEq/L (3.5-5.1); Thyroid Stimulating Hormone 0.514 uIU/mL (0.358-3.740)
[2023-11-22 08:28] LABS: INFLUENZA A NAA NEGATIVE (NEGATIVE)
[2023-11-22 08:44] LABS: SARS-COV-2 RT PCR POSITIVE (NEGATIVE)
[2023-11-22] MEDS: POTASSIUM CL SA 10 MEQ TAB PO ONE (09:20)
--- NOTE | 2023-11-22 14:20 | P.PN ---
Date of Service: 11/22/23 Subjective: Still with LLQ abd pain C/O congestion ROS: 10 point ROS as noted above, otherwise negative Physical exam GEN: Alert, oriented, NAD HEENT: Normal conjunctiva, sclera anicteric CV: Regular rate and rhythm, no edema Pulm: Nonlabored respirations on room air ABD: Soft, nontender, mild LLQ tenderness MSK: No joint tenderness Integumentary: No rashes Neuro: Normal speech, normal affect Vitals reviewed Assessment and plan Acute diverticulitis of the distal descending colon Febrile Left lower quadrant pain -CT abd/pelvis demonstrates acute uncomplicated diverticulitis of the distal descending colon, hepatomegaly and hepatic steatosis. -Advanced to full liquid today -Ciprofloxacin and Flagyl on the floor -Gentle IV fluids -Tylenol for fever -Dr. Duarte consulted and following COVID-19 positive Isolation precautions Consider Paxlovid although low risk for worsening respiratory status History of Depression -continue home medications when available Hepatomegaly Hepatic Steatosis -Lipid panel WNL -outpatient follow up DVT ppx SCD Full Code LOS 2 days Time Spent Managing Pts Care (In Minutes): 35
[2023-11-23 06:50] LABS: Absolute Lymphocytes (CBC) 0.7 K/uL (0.7-4.9); Absolute Monocytes 0.6 K/uL (0.1-1.3); Absolute Neutrophil 3.9 K/uL (1.8-8.0); Basophils % 0.5 % (0-1.3); Eosinophils % 0.2 % (0-4.4); Hematocrit 34.1 % (36.0-45.0); Hemoglobin 11.2 g/dL (12.0-15.0); Lymphocytes % 13.2 % (15.3-44.8); MCH 25.1 pg (27.0-35.0); MCHC 32.8 g/dL (32.0-36.0); MCV 76.6 fL (80-100); MPV 8.3 fL (7.6-11.3); Monocytes % 11.5 % (3.3-12.3); Neutrophils % 74.6 % (41.7-73.7); Platelets 209 thou/uL (152-406); RBC Red Blood Cell Count 4.46 M/uL (3.86-4.86); Red Cell Distribution Width 15.2 % (12.1-15.2)
[2023-11-23 07:04] LABS: Anion Gap 8.8 mEq/L (5.0-15.0); Magnesium 1.9 mg/dL (1.6-2.4); Phosphorus 1.7 mg/dL (2.5-4.9); Potassium 3.8 mEq/L (3.5-5.1)
[2023-11-23] MEDS: POTASS/SODIUM PHOSPHATE 1 PKT POWD.PACK PO SCH (08:25)
[2023-11-23] MEDS: POTASSIUM CL SA 10 MEQ TAB PO ONE (08:25)
[2023-11-23 10:22] VITALS: O2SAT 96
[2023-11-23 12:32] VITALS: BP 109/62; TEMP 98.7
--- NOTE | 2023-11-23 13:33 | P.DS ---
Admission Date: 11/21/23 Discharge Date: 11/23/23 Disposition: ROUTINE DISCHARGE Discharge Condition: GOOD Reason for Admission: Acute Diverticulitis Consultations: General surgery-Dr. Duarte Brief History of Present Illness: Va Arnett is a 43-year-old female with past medical history of depression who presents to the ED with chief complaint of LLQ abdominal pain that began 9 hours prior to arrival. She reports having a history of diverticulitis with the last episode approximately 1 year ago. She denies nausea, vomiting, diarrhea. She is hemodynamically stable and lab values showing left shift with neutrophils at 78.4 and UA showing microcytic blood present. CT abd/pelvis demonstrates acute uncomplicated diverticulitis of the distal descending colon, hepatomegaly and hepatic steatosis. Hospital Course: Acute diverticulitis of the distal descending colon Febrile Left lower quadrant pain COVID-19 positive History of Depression Hepatomegaly Hepatic Steatosis Patient was admitted to the hospital for diverticulitis, she was treated with IV antibiotics, IV fluids and as needed pain medications. Her white blood cell count remained within normal limits, abdominal pain improved and her diet was advanced, this morning she tolerated a soft diet. During her hospitalization she did complain of some congestion, COVID test was performed and it was positive. At this point in time she is not at high risk for significant worsening from respiratory standpoint regards to her COVID, discussed Paxlovid as an option but given her acute diverticulitis and low risk for significant respiratory compromise it was deferred. At discharge patient will be sent prescriptions for the following antibiotics Cipro 500 mg mouth twice daily Flagyl 500 mg by mouth 3 times daily Please follow-up with your primary care doctor 1 to 2 weeks Please also follow-up with either Dr. Duarte or a GI doctor in the area to schedule a colonoscopy in around 6 weeks Vital Signs/Physical Exam: Temp Pulse Resp BP Pulse Ox 98.7 F 53 16 109/62 98 11/23/23 12:00 11/23/23 12:11/23/23 12:11/23/23 12:11/23/23 12:00 General: Alert, In no apparent distress, Oriented x3 HEENT: Atraumatic, PERRLA Neck: Supple, JVD not distended Respiratory: Clear to auscultation bilaterally, Normal air movement Cardiovascular: Regular rate/rhythm, Normal S1 S2 Gastrointestinal: Normal bowel sounds, Tenderness (Mild LLQ tenderness) Musculoskeletal: No tenderness Integumentary: No rashes Neurological: Normal speech, Normal tone, Normal affect Lymphatics: No axilla or inguinal lymphadenopathy Laboratory Data at Discharge: WBC 5.20 thou/uL (4.3-10.9) 11/23/23 06:30 Hgb 11.2 g/dL (12.0-15.0) L 11/23/23 06:30 Hct 34.1 % (36.0-45.0) L 11/23/23 06:30 Plt Count 209 thou/uL (152-406) 11/23/23 06:30 Sodium 138 mEq/L (136-145) 11/23/23 06:20 Potassium 3.8 mEq/L (3.5-5.1) 11/23/23 06:20 BUN 4 mg/dL (7-18) L 11/23/23 06:20 Creatinine 0.69 mg/dL (0.55-1.02) 11/23/23 06:20 Glucose 141 mg/dL (74-106) H 11/23/23 06:20 Phosphorus 1.7 mg/dL (2.5-4.9) L 11/23/23 06:20 Magnesium 1.9 mg/dL (1.6-2.4) 11/23/23 06:20 Total Bilirubin 0.2 mg/dL (0.2-1.0) 11/21/23 03:13 AST 29 U/L (15-37) 11/21/23 03:13 ALT 58 U/L (13-56) H 11/21/23 03:13 Alkaline Phosphatase 93 U/L (45-117) 11/21/23 03:13 Triglycerides 60 mg/dL (<150) 11/22/23 06:02 Cholesterol 131 mg/dL (<200) 11/22/23 06:02 HDL Cholesterol 40 mg/dL (40-60) 11/22/23 06:02 Cholesterol/HDL Ratio 3.28 11/22/23 06:02 Lipase 57 U/L (13-75) 11/21/23 03:13 Home Medications: Losartan Potassium 12.5 mg PO DAILY 11/21/23 Ciprofloxacin HCl 500 mg PO BID 7 Days #14 tab 11/23/23 metroNIDAZOLE [Flagyl] 500 mg PO Q8H 7 Days #21 tab 11/23/23 New Medications: Ciprofloxacin HCl 500 mg PO BID 7 Days #14 tab metroNIDAZOLE [Flagyl] 500 mg PO Q8H 7 Days #21 tab Physician Discharge Instructions: Patient was admitted to the hospital for diverticulitis, she was treated with IV antibiotics, IV fluids and as needed pain medications. Her white blood cell count remained within normal limits, abdominal pain improved and her diet was advanced, this morning she tolerated a soft diet. During her hospitalization she did complain of some congestion, COVID test was performed and it was positive. At this point in time she is not at high risk for significant worsening from respiratory standpoint regards to her COVID, discussed Paxlovid as an option but given her acute diverticulitis and low risk for significant respiratory compromise it was deferred. At discharge patient will be sent prescriptions for the following antibiotics Cipro 500 mg mouth twice daily Flagyl 500 mg by mouth 3 times daily Please follow-up with your primary care doctor 1 to 2 weeks Please also follow-up with either Dr. Duarte or a GI doctor in the area to schedule a colonoscopy in around 6 weeks Diet: low fiber Activity: Ad tatianna Followup: Arpan Duarte MD [ACTIVE - CAN ADMIT] - 1-2 Weeks NONE,NONE [Primary Care Provider] - 1-2 Weeks Time spent managing pt's care (in minutes): 35
== END 2023-11-23 15:30 | disposition home or self-care (01) | DRG 391 ==
LOC: ER 02:28 → ERHOLD 09:08 → 4TH 09:31
PROVIDERS: ADMIT Internal Medicine; ATTEND Hospitalist
DX: K57.30 Diverticulosis of large intestine without perforation or abscess without bleeding (principal); U07.1 COVID-19; F32.A Depression, unspecified; R16.0 Hepatomegaly, not elsewhere classified; K76.0 Fatty (change of) liver, not elsewhere classified
CPT/HCPCS: 0240U; 36415; 74177; 80048; 80053; 80061; 81001; 81025; 83690; 83735; 84100; 84439; 84443; 85025; 96374; 96375; 99284; J0696; J0744; J2405; J7030; Q9967